=== PATIENT | female | born 1950 | race Caucasian/White ===

== ENCOUNTER → 2016-02-29 | Outpatient (CLI) | payer OTHER, MEDICARE ==
--- NOTE | 2016-02-29 13:43 | DX ---
DEXA Bone Mineral Densitometry Clinical Indications: Postmenopausal, history of wrist fracture, rheumatoid arthritis, screening for osteoporosis Comparison: None Technique: Bone Mineral Densitometry (BMD) by Dual Energy X-Ray Absorptiometry (DEXA) was performed utilizing the Yulex scanner. The lumbar spine was evaluated in the AP projection. The bilat eral hips and forearm were evaluated in the AP projection. Vertebral fracture assessment was also pe rformed. AP Lumbar Spine: The L1, L2 and L3 vertebral bodies were evaluated. L4 is excluded due to degenera tive sclerosis. BMD: 1.042 gm/cm2 T-score: -1.1 SD Z-score: -0.7 SD AP Left Hip: Neck BMD: 0.863 gm/cm2 T-score: -1.3 SD Z-score: -0.5 SD AP Right Hip: Neck BMD: 0.818 gm/cm2 T-score: -1.6 SD Z-score: -0.8 SD AP Right Forearm, 02/15: BMD: 0.885 gm/cm2 T-score: 0.1 SD Z-score: 1.6 SD Vertebral Fracture Assessment: No significant fracture deformity. No prevertebral aortic calcificati on, significant marginal bone spurring, facet arthrosis, or intrinsic vertebral body sclerosis that would effect the accuracy of the lumbar spine BMD measurement. Conclusion: Considering the lowest measured site, the patient has low bone density. The ten year FRAX risk for any major osteoporotic fracture , which excludes the risk for a wrist frac ture, is 13.8% and for a hip fracture is 1.6%. Any bone loss in this patient is probably related to aging or estrogen deficiency. 800 IU per day (for ages 71 and older). 4. Consider follow-up DEXA scan in two years to assess the rate of bone loss in this patient.>]
== END ==
LOC: BRMIMAGING 09:26
PROVIDERS: ATTEND Internal Medicine Rheumatology
DX: Z13.820 Encounter for screening for osteoporosis (principal); M85.80 Other specified disorders of bone density and structure, unspecified site; M06.9 Rheumatoid arthritis, unspecified; Z87.81 Personal history of (healed) traumatic fracture

== ENCOUNTER → 2016-12-23 | Outpatient (CLI) | payer OTHER, MEDICARE | LOC: BRMIMAGING 10:27 | PROVIDERS: ATTEND Internal Medicine Rheumatology | DX: M16.0 Bilateral primary osteoarthritis of hip (principal) | CPT/HCPCS: 73521-PO ==